=== PATIENT | female | born 1980 | race Caucasian/White ===

== ENCOUNTER 2024-12-17 00:51 | Emergency (ER) | payer MEDICAID, OTHER ==
[~2024-12-17] VITALS: Ht 160 cm; Wt 72.7 kg
[2024-12-17] MEDS: KETOROLAC TROMETHAMINE 30 MG/ML VIAL IM ONE (02:55)
[2024-12-17 06:16] VITALS: BP 119/68; PULSE 85; RESP 18; TEMP 97.7; O2SAT 98
== END 2024-12-17 06:26 | disposition home or self-care (01) ==
LOC: EMS 00:53
DX: S16.1XXA Strain of muscle, fascia and tendon at neck level, initial encounter (principal); S00.83XA Contusion of other part of head, initial encounter; Z98.890 Other specified postprocedural states; Y04.0XXA Assault by unarmed brawl or fight, initial encounter; Y93.89 Activity, other specified; Y92.89 Other specified places as the place of occurrence of the external cause; Y99.8 Other external cause status
CPT/HCPCS: 99285; 70450; 72125; 96372; J1885